=== PATIENT | male | born 1950 | race Caucasian/White ===

== ENCOUNTER 2022-02-26 21:11 | Emergency (ER) | payer SELFPAY ==
[~2022-02-26] VITALS: Ht 165.1 cm; Wt 68.0 kg
[2022-02-26 21:13] VITALS: BP 153/92
--- NOTE | 2022-02-26 21:13 | NUR ---
PT OFFLOADED TO GREG
[2022-02-26] MEDS ORDERED: ONDANSETRON 4 MG ODT PO ONE (22:45)
[2022-02-26] MEDS ORDERED: PROM118S5 PO (22:54)
[2022-02-26] MEDS ORDERED: ONDA-188 SL (22:54)
--- NOTE | 2022-02-26 23:25 | NUR ---
PT REFUSED EKG AND LAB WORK. CARLOS GUZMAN AND MD RODO NOTIFIED.
--- NOTE | 2022-02-26 23:26 | NUR ---
PATIENT REFUSED EKG.
--- NOTE | 2022-02-26 23:39 | NUR ---
Patient does not wish to proceed with medical care recommended by DR. KOEHLER. Patient given information related to possible complications, up to and including , which could occur as a result of leaving hospital at this time. Patient verbalizes understanding of risks involved leaving against medical advice. Patient has signed AMA form.
== END 2022-02-26 23:39 | disposition left against medical advice (07) ==
LOC: MED 21:11
DX: B34.9 Viral infection, unspecified (principal); R11.2 Nausea with vomiting, unspecified; R05.9 Cough, unspecified; F17.200 Nicotine dependence, unspecified, uncomplicated; Z79.899 Other long term (current) drug therapy
CPT/HCPCS: 71045; 99283; Q0162